=== PATIENT | female | born 1995 ===

== ENCOUNTER 2019-09-28 18:26 | Emergency (ER) | payer BC ==
[~2019-09-28] VITALS: Ht 162.6 cm; Wt 124.2 kg
[2019-09-28] MEDS ORDERED: HYDROmorphone 1 MG/ML, 1ML INJ ONE ×3 (18:53→20:58)
[2019-09-28] MEDS ORDERED: ONDANSETRON 2MG/ML, 2ML ONE (18:53)
[2019-09-28] MEDS: HYDROmorphone 2 MG/ML, 1ML IVPush PRN ×2 (18:58→19:39)
[2019-09-28] MEDS ORDERED: ONDANSETRON 2MG/ML, 2ML IVPush ONE (19:00)
[2019-09-28] MEDS ORDERED: DIPH,PERTUSS(ACELL),TET VAC/PF 0.5 ML IM-VACC ONE ×2 (19:00→19:36)
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
--- NOTE | 2019-09-28 19:43 | NUR ---
Pt debridement halted due to pt inability to tolerate. Given more pain medication and will attempt to continue.
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
[2019-09-28 20:10] VITALS: BP 164/92
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
--- NOTE | 2019-09-28 21:01 | NUR ---
Pt states still in pain. Erp consulted. Verbal order of 1 mg dilaudid iv given, per md.
--- NOTE | 2019-09-28 21:17 | NUR ---
TP RN: STILL AWAITING BED ASSIGNMENT FOR TRANSFER TO [facility] [place].
[2019-09-28] MEDS ORDERED: HYDROmorphone 1 MG/ML, 1ML INJ IV ONE (21:30)
== END 2019-09-28 22:10 | disposition home or self-care (01) ==
LOC: ED 18:54
DX: T22.211A Burn of second degree of right forearm, initial encounter (principal); T23.271A Burn of second degree of right wrist, initial encounter; T23.241A Burn of second degree of multiple right fingers (nail), including thumb, initial encounter; T23.292A Burn of second degree of multiple sites of left wrist and hand, initial encounter; T31.0 Burns involving less than 10% of body surface; X12.XXXA Contact with other hot fluids, initial encounter; Y93.89 Activity, other specified; Y92.009 Unspecified place in unspecified non-institutional (private) residence as the place of occurrence of the external cause; Y99.8 Other external cause status
CPT/HCPCS: 16020; 90471; 90715; 96374; 96375; 96376; 99291; J1170; J2405